=== PATIENT | male | born 2000 | race Caucasian/White ===

== ENCOUNTER 2023-02-14 00:52 | Emergency (ER) | payer OTHER ==
[~2023-02-14] VITALS: Ht 170.2 cm; Wt 95.3 kg
[2023-02-14 00:55] VITALS: BP 149/62; PULSE 73; RESP 17; TEMP 98.3; O2SAT 98
--- NOTE | 2023-02-14 00:55 | NUR ---
TO BED AMBULATORY
--- NOTE | 2023-02-14 01:07 | NUR ---
XRAY AT BEDSIDE
--- NOTE | 2023-02-14 01:13 | NUR ---
Dr. Dominguez examining patient.
[2023-02-14] MEDS ORDERED: PROPOFOL 200 MG/20 ML VIAL IV ONE (01:25)
--- NOTE | 2023-02-14 01:34 | NUR ---
RT AT BEDSIDE
--- NOTE | 2023-02-14 01:45 | NUR ---
X-Ray at bedside.
[2023-02-14 01:46] VITALS: O2SAT 98
--- NOTE | 2023-02-14 02:00 | NUR ---
SEE CONSCIOUS SEDATION SHEET
[2023-02-14] MEDS ORDERED: NAPR-54 PO (02:31)
--- NOTE | 2023-02-14 02:50 | NUR ---
D/C BY Patient discharged with v/s stable. Written and verbal after care instructions given and explained. Patient alert, oriented and verbalized understanding of instructions. Ambulatory with by parent. All questions addressed prior to discharge. ID band removed. Patient advised to follow up with PMD. Rx of NAPROSYN given. Patient educated on indication of medication including possible reaction and side effects. Opportunity to ask questions provided and answered.
== END 2023-02-14 02:50 | disposition home or self-care (01) ==
LOC: MED 00:52
DX: S43.004A Unspecified dislocation of right shoulder joint, initial encounter (principal); Z79.899 Other long term (current) drug therapy; W17.89XA Other fall from one level to another, initial encounter; Y93.89 Activity, other specified; Y92.89 Other specified places as the place of occurrence of the external cause; Y99.8 Other external cause status
CPT/HCPCS: 23650; 73020; 73030; 94770; 99152; 99285; J2704; Q0092